=== PATIENT | female | born 2000 | race Caucasian/White ===

== ENCOUNTER 2023-03-26 07:26 | Outpatient (CLI) | payer BC, SELFPAY ==
[2023-03-26 13:38] LABS: Albumin* 4.7 g/dL (3.3-5.0); Chloride* 106 mmol/L (96-114); Potassium* 4.3 mmol/L (3.6-5.1); Sodium* 137 mmol/L (135-149)
[2023-03-26 13:40] LABS: Carbon Dioxide* 20 mmol/L (20-32); Cholesterol* 159 mg/dL (90-199); Creatinine* 0.8 mg/dL (0.5-1.5); Estimated Glomerular Filt Rate 107 ml/min
[2023-03-26 13:41] LABS: Alanine Aminotransferase* 19 U/L (4-35); Alkaline Phosphatase* 58 U/L (40-150); Aspartate Amino Transferase* 30 U/L (12-35); Bilirubin Total* 1.3 mg/dL (0.1-1.5); Blood Urea Nitrogen* 13 mg/dL (5-24); Calcium* 9.4 mg/dL (8.4-10.6); Glucose* 88 mg/dL (60-115); HDL Cholesterol* 42 mg/dL (>=50); LDL Cholesterol Calculated 104 mg/dL (<100); Total Protein* 7.7 g/dL (6.0-8.3); Triglycerides* 66 mg/dL (40-149)
[2023-03-26 15:03] LABS: Chlamydia DNA Amplified* NOT DETECTED (No Detected); GC DNA Amplified* NOT DETECTED (No Detected)
== END 2023-03-26 07:27 | disposition home or self-care (01) ==
PROVIDERS: PCP Family Medicine; Visit Provider Physician Assistant Medical
DX: Z00.00 Encounter for general adult medical examination without abnormal findings (principal); D50.9 Iron deficiency anemia, unspecified; Z13.6 Encounter for screening for cardiovascular disorders; Z13.29 Encounter for screening for other suspected endocrine disorder; Z79.3 Long term (current) use of hormonal contraceptives
CPT/HCPCS: 80053; 80061; 84443; 87491; 87591